=== PATIENT | female | born 1935 | race Caucasian/White ===

== ENCOUNTER 2017-03-19 15:50 | Emergency (ER) | payer OTHER, MEDICAID ==
[~2017-03-19] VITALS: Ht 144.8 cm; Wt 80.7 kg
[2017-03-19 16:36] VITALS: BP 125/61
[2017-03-19] MEDS ORDERED: BACITRACIN TOP OINT 1 UD PKG TOP ONE (17:00)
== END 2017-03-19 17:18 | disposition home or self-care (01) ==
LOC: ER 15:53
DX: S69.91XA Unspecified injury of right wrist, hand and finger(s), initial encounter (principal); X58.XXXA Exposure to other specified factors, initial encounter; Y93.89 Activity, other specified; Y99.8 Other external cause status; Y92.89 Other specified places as the place of occurrence of the external cause

== ENCOUNTER 2017-07-07 02:53 | Inpatient (IN) | payer OTHER, MEDICAID ==
[~2017-07-07] VITALS: Ht 144.8 cm; Wt 77.9 kg
[2017-07-07 03:46] LABS: Basophils # (auto) 0.1 uL; Basophils % (auto) 1.3 % (0.0-2.0); Eosinophils # (auto) 0.3 uL; Eosinophils % (auto) 3.7 % (0.0-7.0); Hemoglobin 12.7 g/dL (12.2-16.2); Lymphocytes # (auto) 3.2 uL; Lymphocytes % (auto) 35.5 % (10.0-50.0); Mean Corpuscular Hemoglobin 27.9 pg (28.0-32.0); Mean Corpuscular Hgb Conc. 32.6 g/dL (32.0-36.0); Mean Corpuscular Volume 85.7 fL (80.0-100.0); Monocytes # (auto) 0.8 uL; Monocytes % (auto) 9.4 % (0.0-12.0); Neutrophils # (auto) 4.4 uL; Neutrophils % (auto) 50.1 % (37.0-80.0); Nucleated Red Blood Cells % 0.1 %; Platelet Count (auto) 217 10^3/uL (140-450); Red Blood Cells 4.55 10^6/uL (4.0-5.20); Red Cell Distribution Width 14.2 % (11.8-14.3); White Blood Cell 8.9 10^3/uL (4.4-10.8)
[2017-07-07] MEDS ORDERED: ALBUTEROL SULF 2.5 MG/0.5ML(0.5%) NEB SOLN NEB ONE (04:00)
[2017-07-07] MEDS ORDERED: IPRATROPIUM BROM 0.5 MG/2.5ML INH SOL NEB ONE (04:00)
[2017-07-07] MEDS ORDERED: methylPREDNISolone SOD SUCC 125 MG/2 ML VL IV ONE (04:00)
[2017-07-07 04:05] LABS: Potassium 4.5 mmol/L (3.5-5.1)
[2017-07-07 04:08] LABS: Albumin 3.6 g/dL (3.4-5.0); BUN/Creatinine Ratio 20.5
[2017-07-07 04:15] LABS: Bilirubin, Total 0.3 mg/dL (0.2-1.0); Total Protein 7.7 g/dL (6.4-8.2)
[2017-07-07] MEDS ORDERED: SODIUM CHLORIDE 0.9% 1,000 ML IV ONE (06:33)
[2017-07-07] MEDS ORDERED: LEVOFLOXACIN 500MG 100 ML IV ONE (06:45)
[2017-07-07 08:05] LABS: Urine Bacteria NONE SEEN /hpf (None Seen); Urine Blood Negative /uL (Negative); Urine Specific Gravity 1.017 (1.001-1.035); Urine WBC 2 /hpf (0 - 5)
[2017-07-07] MEDS ORDERED: SODIUM CHLORIDE 0.9% 1,000 ML IV SCH (08:26)
[2017-07-07] MEDS ORDERED: LORazepam 0.5 MG TAB PO PRN (08:30)
[2017-07-07] MEDS ORDERED: ALBUTEROL SULF 2.5 MG/0.5ML(0.5%) NEB SOLN NEB PRN (08:30)
[2017-07-07] MEDS ORDERED: DEXTROSE (50%) 50ML SYRG IV PRN (08:30)
[2017-07-07] MEDS ORDERED: HYDROcodone-ACET 5/325MG TAB PO PRN (08:30)
[2017-07-07] MEDS ORDERED: PROMETHAZINE HCL 25 MG/ML 1ML IV PRN (08:30)
[2017-07-07] MEDS ORDERED: NITROGLYCERIN 0.4 MG SL TAB SL PRN (08:30)
[2017-07-07] MEDS ORDERED: MORPHINE SULFATE 10 MG/ML INJ 1ML SDV IV PRN ×2 (08:30)
[2017-07-07] MEDS ORDERED: LACTULOSE 20Gm/30ML SOLN PO PRN ×2 (08:30)
[2017-07-07] MEDS ORDERED: TEMAZEPAM 15 MG CAP PO PRN (08:30)
[2017-07-07] MEDS: ASPirin 81 mg TAB PO SCH (10:00)
[2017-07-07] MEDS: NITROGLYCERIN 0.2MG/HR TOPICAL PATCH TD SCH (10:00)
[2017-07-07] MEDS: ENOXAPARIN SOD 40 MG/0.4 ML SYRINGE SC SCH (10:00)
[2017-07-07] MEDS: METOPROLOL TARTRATE 25 MG TAB PO SCH ×2 (10:00→22:30)
[2017-07-07 10:05] VITALS: BP 103/72
[2017-07-07] MEDS: SODIUM CHLORIDE 0.9% 1,000 ML IV SCH (11:00)
[2017-07-07] MEDS: ACCU-CHEK COMFORT CURVE STRIP VI SCH ×3 (11:30→22:28)
[2017-07-07] MEDS: InsuLIN REG 1unit/0.01ml Soln (100units/ml) SC SCH ×3 (11:30→22:31)
[2017-07-07 16:40] VITALS: BP 145/77
[2017-07-07] MEDS: AZITHROMYCIN 500MG/ 250ML 250 ML IV SCH (17:23)
[2017-07-07] MEDS: ALBUTEROL SULF 2.5 MG/0.5ML(0.5%) NEB SOLN NEB SCH (19:08)
[2017-07-07] MEDS: IPRATROPIUM BROM 0.5 MG/2.5ML INH SOL NEB SCH (19:08)
[2017-07-07 22:28] VITALS: BP 125/65
[2017-07-07] MEDS: ACETAMINOPHEN 500 MG TAB PO PRN (22:28)
[2017-07-07] MEDS: ATORVASTATIN 20 MG TAB PO SCH (22:28)
[2017-07-08] MEDS: IPRATROPIUM BROM 0.5 MG/2.5ML INH SOL NEB SCH ×4 (00:27→18:37)
[2017-07-08] MEDS: ALBUTEROL SULF 2.5 MG/0.5ML(0.5%) NEB SOLN NEB SCH ×4 (00:27→18:37)
[2017-07-08] MEDS: SODIUM CHLORIDE 0.9% 1,000 ML IV SCH ×2 (02:29→14:24)
[2017-07-08 05:24] VITALS: BP 94/46
[2017-07-08 05:54] LABS: Basophils # (auto) 0 uL; Eosinophils # (auto) 0 uL; Hematocrit 36.6 % (36.0-46.0); Hemoglobin 11.4 g/dL (12.2-16.2); Lymphocytes # (auto) 1.8 uL; Lymphocytes % (auto) 16.6 % (10.0-50.0); Mean Corpuscular Hemoglobin 27.9 pg (28.0-32.0); Mean Corpuscular Hgb Conc. 31.1 g/dL (32.0-36.0); Mean Corpuscular Volume 89.9 fL (80.0-100.0); Monocytes # (auto) 0.8 uL; Monocytes % (auto) 7.7 % (0.0-12.0); Neutrophils # (auto) 8.1 uL; Neutrophils % (auto) 75.7 % (37.0-80.0); Nucleated Red Blood Cells % 0.1 %; Platelet Count (auto) 192 10^3/uL (140-450); Red Blood Cells 4.07 10^6/uL (4.0-5.20); Red Cell Distribution Width 14.3 % (11.8-14.3); White Blood Cell 10.6 10^3/uL (4.4-10.8)
[2017-07-08 06:21] LABS: Cholesterol 188 mg/dL (< 200); HDL Cholesterol 36 mg/dL (40-59); LDL Cholesterol 138 mg/dL (< 100); Triglycerides 186 mg/dL (< 150)
[2017-07-08] MEDS: InsuLIN REG 1unit/0.01ml Soln (100units/ml) SC SCH ×4 (06:21→22:48)
[2017-07-08] MEDS: ACCU-CHEK COMFORT CURVE STRIP VI SCH ×4 (06:21→22:48)
[2017-07-08 09:36] VITALS: BP 99/52
[2017-07-08] MEDS: METOPROLOL TARTRATE 25 MG TAB PO SCH ×2 (10:00→22:47)
[2017-07-08] MEDS: NITROGLYCERIN 0.2MG/HR TOPICAL PATCH TD SCH (10:00)
[2017-07-08] MEDS: ASPirin 81 mg TAB PO SCH (10:39)
[2017-07-08] MEDS: ENOXAPARIN SOD 40 MG/0.4 ML SYRINGE SC SCH (10:39)
[2017-07-08] MEDS: AZITHROMYCIN 500MG/ 250ML 250 ML IV SCH (10:40)
[2017-07-08] MEDS: ACETYLCYSTEINE 10 %(100MG/ML) SOL 4ML NEB SCH ×2 (11:27→18:37)
[2017-07-08] MEDS: cefTRIAXone 1GM/50ML D5W 50 ML IV SCH (12:22)
[2017-07-08] MEDS: methylPREDNISolone SOD SUCC 40 MG/ML VL IV SCH ×2 (12:23→20:20)
[2017-07-08 13:00] VITALS: BP 112/57
[2017-07-08 17:32] VITALS: BP 122/74
[2017-07-08] MEDS: ATORVASTATIN 20 MG TAB PO SCH (22:46)
[2017-07-08 22:47] VITALS: BP 139/66
[2017-07-08] MEDS: ACETAMINOPHEN 500 MG TAB PO PRN (22:48)
[2017-07-09] MEDS: IPRATROPIUM BROM 0.5 MG/2.5ML INH SOL NEB SCH ×2 (00:21→07:37)
[2017-07-09] MEDS: ACETYLCYSTEINE 10 %(100MG/ML) SOL 4ML NEB SCH ×2 (00:22→07:38)
[2017-07-09] MEDS: ALBUTEROL SULF 2.5 MG/0.5ML(0.5%) NEB SOLN NEB SCH ×2 (00:22→07:37)
[2017-07-09] MEDS ORDERED: PNEUMOCOCCAL VACC POLYS 25 MCG/0.5 ML VIAL IM ONE (02:15)
[2017-07-09] MEDS: SODIUM CHLORIDE 0.9% 1,000 ML IV SCH (03:13)
[2017-07-09] MEDS: methylPREDNISolone SOD SUCC 40 MG/ML VL IV SCH ×2 (04:00→11:53)
[2017-07-09 04:56] VITALS: BP 105/49
[2017-07-09] MEDS: InsuLIN REG 1unit/0.01ml Soln (100units/ml) SC SCH ×2 (06:57→11:52)
[2017-07-09] MEDS: ACCU-CHEK COMFORT CURVE STRIP VI SCH ×2 (06:58→11:43)
[2017-07-09 09:00] VITALS: BP 114/52
[2017-07-09] MEDS: cefTRIAXone 1GM/50ML D5W 50 ML IV SCH (09:00)
[2017-07-09 09:56] VITALS: BP 123/68
[2017-07-09] MEDS: AZITHROMYCIN 500MG/ 250ML 250 ML IV SCH (10:00)
[2017-07-09] MEDS: ENOXAPARIN SOD 40 MG/0.4 ML SYRINGE SC SCH (10:00)
[2017-07-09] MEDS: METOPROLOL TARTRATE 25 MG TAB PO SCH (10:22)
[2017-07-09] MEDS: ASPirin 81 mg TAB PO SCH (10:22)
== END 2017-07-09 13:08 | disposition home or self-care (01) | DRG 202 ==
LOC: ER 02:54 → TELE 02:55 → TELE-CENTR 10:52 → TELE-E-ADS 11:01 → TELE-CENTR 13:52
PROVIDERS: ADMIT Internal Medicine; ATTEND Family Medicine
DX: J40 Bronchitis, not specified as acute or chronic (principal); I24.9 Acute ischemic heart disease, unspecified; E11.65 Type 2 diabetes mellitus with hyperglycemia; E11.69 Type 2 diabetes mellitus with other specified complication; E03.9 Hypothyroidism, unspecified; E78.5 Hyperlipidemia, unspecified; I08.0 Rheumatic disorders of both mitral and aortic valves; I10 Essential (primary) hypertension; E66.9 Obesity, unspecified; I25.10 Atherosclerotic heart disease of native coronary artery without angina pectoris; Z95.2 Presence of prosthetic heart valve; Z95.1 Presence of aortocoronary bypass graft; Z87.891 Personal history of nicotine dependence; Z68.37 Body mass index [BMI] 37.0-37.9, adult; Z95.0 Presence of cardiac pacemaker; Z90.49 Acquired absence of other specified parts of digestive tract
CPT/HCPCS: 36415; 71010; 71020; 80053; 80061; 81001; 82550; 82962; 83036; 83605; 83735; 83880; 84484; 85025; 85379; 85652; 86141; 87040; 87070; 87205; 93005; 93306; 94640; 94761; 96372; 96374; 96375; J0696; J1815; J1956

== ENCOUNTER 2019-04-27 18:50 | Emergency (ER) | payer OTHER, MEDICAID ==
[~2019-04-27] VITALS: Ht 132.1 cm; Wt 74.8 kg
[2019-04-27 19:07] VITALS: BP 119/68
[2019-04-27] MEDS ORDERED: methylPREDNISolone SOD SUCC 125 MG/2 ML VL IM ONE (20:45)
[2019-04-27] MEDS ORDERED: diphenhdrAMINE HCL 25 MG CAP PO ONE (20:45)
[2019-04-27] MEDS ORDERED: EPINEPHrine HCL 1 MG/1 ML AMP SC ONE (20:45)
[2019-04-27] MEDS ORDERED: FAMOTIDINE 20 MG TAB PO ONE (20:45)
== END 2019-04-27 21:08 | disposition home or self-care (01) ==
LOC: ER 18:52
DX: T78.40XA Allergy, unspecified, initial encounter (principal); I25.10 Atherosclerotic heart disease of native coronary artery without angina pectoris; E11.9 Type 2 diabetes mellitus without complications; I10 Essential (primary) hypertension; E78.00 Pure hypercholesterolemia, unspecified; Z87.891 Personal history of nicotine dependence; Z90.49 Acquired absence of other specified parts of digestive tract; Z95.0 Presence of cardiac pacemaker
CPT/HCPCS: 96372; 99283; J0171; J2930